=== PATIENT | male | born 1975 | race African-American/Black ===

== ENCOUNTER 2022-10-29 21:56 | Emergency (ER) | payer OTHER ==
[~2022-10-29 21:56] MED LIST: Iopamidol-370 76% 500 ML 1 ML ONE
[2022-10-29] MEDS ORDERED: Fentanyl 100 MCG/2 ML VIAL ONE (22:09)
[2022-10-29 22:13] LABS: Hemoglobin 14.4 g/dL (14.0-18.0); Mean Corpuscular HGB CONC 31.5 g/dL (32.0-36.0); Mean Corpuscular Hemoglobin 27.9 pg (27.0-31.0); Mean Corpuscular Volume 88.4 fl (78.0-98.0); Mean Platelet Volume 8.9 fL (7.4-10.4); Platelet Count 196 10x3/uL (130-400); RBC Distribution Width 12.4 % (11.5-14.5); Red Blood Cell (RBC) Count 5.16 mill/uL (4.70-6.10); White Blood Cell (WBC) Count 5.4 10x3/uL (4.8-10.8)
[2022-10-29 22:23] LABS: PTT 36.2 sec (22.9-36.1); Prothrombin Time 13.7 sec (12.0-14.7)
[2022-10-29 22:30] LABS: Band 1 % (5-11); Hypochromia SLIGHT = 6-15 cells (100X) (0-5/hpf); Lymphocytes 55 % (21-51); MDiff Complete? YES; Monocytes 3 % (0-10); Neutrophil 31 % (42-75); Platelet Morphology Comment Appears Adequate; Reactive Lymphocytes 10 % (0-10)
[2022-10-29 22:35] LABS: ALT (SGPT) 18 U/L (8-55); AST (SGOT) 17 U/L (5-34); Albumin 4.2 g/dL (3.5-5.0); Alkaline Phosphatase 78 U/L (40-110); Anion Gap 13 mmol/L (10-20); BUN (Urea Nitrogen) 16 mg/dL (8.9-20.6); Calc. Creatinine Clearance 0 mL/min (70-130); Calcium 9.4 mg/dL (7.8-10.44); Carbon Dioxide 24 mmol/L (22-29); Chloride 106 mmol/L (98-107); Estimated GFR 96; Globulin 3.7 g/dL (2.4-3.5); Glucose 86 mg/dL (70-105); Potassium 3.6 mmol/L (3.5-5.1); Protein, Total 7.9 g/dL (6.0-8.3); Sodium 139 mmol/L (136-145)
== END 2022-10-30 00:36 | disposition home or self-care (01) ==
LOC: ERS 21:56
DX: S00.81XA Abrasion of other part of head, initial encounter (principal); I10 Essential (primary) hypertension; V49.9XXA Car occupant (driver) (passenger) injured in unspecified traffic accident, initial encounter
CPT/HCPCS: 70450; 71045; 71260; 72125; 74177; 80053; 85025; 85610; 85730; 93005; 96374; G0390; J3010; Q9967